=== PATIENT | female | born 1970 | race Caucasian/White ===

== ENCOUNTER 2017-07-03 08:53 | Emergency (ER) | payer MEDICAID ==
[2017-07-03] MEDS: Sodium Chloride 0.9% 10 ML Syringe FLUSH PRN (09:43)
[2017-07-03] MEDS: Sodium Chloride 0.9% 1,000 ML IV ONE (09:43)
[2017-07-03] MEDS: Ondansetron 4 MG/2 ML SDV IV ONE (09:43)
--- NOTE | 2017-07-03 09:45 | EDM.PDOC ---
ED HPI GENERAL MEDICAL PROBLEM - General Chief Complaint: Gastrointestinal Problem Stated Complaint: PASSED OUT [id number] Time Seen by Provider: 07/03/17 09:20 Source of Information: Reports: Patient History Limitations: Reports: No Limitations - History of Present Illness INITIAL COMMENTS - FREE TEXT/NARRATIVE: More is a 46 yo f who presents to the ED today due to a syncopal episode at home. She reports that she was getting ready to leave for a doctors appointment when she passed out for a couple seconds. Episode was witnessed per her mother. Patient relates that she has been having several episodes of diarrhea for the last 3 days. She reports that she has been incontinent of stool twice. Reports that she has had dizziness for the last 2 days and blurred vision. Says that she has been taking in fluids without issues. Decreased appetite. Nausea no emesis. Denies fever. Has been having chills off and on. Reports pain to his left upper abd since onset of diarrhea. Onset Date: 06/30/17 Duration: Day(s): (x 3days ), Constant, Getting Worse Location: Reports: Abdomen (Left upper abd) Quality: Reports: Ache, Throbbing Severity: Moderate Improves with: Reports: None Worsens with: Reports: Eating Associated Symptoms: Reports: Fever/Chills, Loss of Appetite, Nausea/Vomiting, Syncope, Weakness - Related Data Allergies Allergy/AdvReac Type Severity Reaction Status Date / Time nitrofurantoin Allergy Intermediate Hives Verified 07/03/17 09:01 macrocrystalline [From Macrodantin] latex Allergy Blisters Verified 07/03/17 09:01 Home Meds: Home Meds traZODone 50 mg PO BEDTIME 11/12/13 [History] Atenolol [Atenolol] 150 mg PO DAILY 12/17/13 [History] Cholecalciferol (Vitamin D3) [Vitamin D] 1 tab PO DAILY 12/17/13 [History] Cyanocobalamin (Vitamin B-12) [B-12] 1 tab PO DAILY 12/17/13 [History] Lactobacillus Acidophilus [Acidophilus Lactobacillus] 1 tab PO DAILY 12/17/13 [ History] Loratadine [Claritin] 10 mg PO DAILY 12/17/13 [History] Metoclopramide [Reglan] 10 mg PO TID PRN 12/17/13 [History] Omeprazole [Omeprazole] 20 mg PO DAILY 12/17/13 [History] SUMAtriptan Succinate [Imitrex] 100 mg PO BID PRN 12/17/13 [History] Sennosides [Natural Laxative] 1 tab PO DAILY 12/17/13 [History] Triamcinolone Acetonide [Triamcinolone Acetonide 0.1% Crm] 1 dose TOP DAILY [History] Albuterol [Proventil HFA] 2 puff INH Q4H PRN 02/07/15 [History] Escitalopram [Lexapro] 20 mg PO DAILY 02/07/15 [History] Fluticasone/Vilanterol [Breo Ellipta 200-25 Mcg INH] 02/07/15 [History] Lisinopril 2.5 mg PO DAILY 02/07/15 [History] Montelukast [Singulair] 10 mg PO ONETIME 02/07/15 [History] Furosemide [Furosemide] 20 mg PO DAILY 03/23/15 [History] Gabapentin [Gabapentin] 400 mg PO TID 03/23/15 [History] buPROPion HCl [Bupropion Xl] 1 tab PO DAILY 03/23/15 [History] Past Medical History HEENT History: Reports: Impaired Vision Other HEENT History: near sited Other Respiratory History: breast reduction Gastrointestinal History: Reports: None, Other (See Below) (patient reports that she has a hx of gallbladder sludge.) Other OB/BYN History: hystrectomy 2011 3/c- section / Other Musculoskeletal History: raynauds Other Immunologic History: n/a 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) Other Dermatologic History: biopsy waiting on results, to right elbow - Past Surgical History Female Surgical History: Reports: Breast Reduction, Hysterectomy Social & Family History - Family History Family Medical History: Noncontributory - Tobacco Use Smoking Status *Q: Current Every Day Smoker Years of Tobacco use: 30 Packs/Tins Daily: 1 Used Tobacco, but Quit: No Second Hand Smoke Exposure: No - Caffeine Use Caffeine Use: Reports: Coffee - Alcohol Use Days Per Week of Alcohol Use: 0 - Recreational Drug Use Recreational Drug Use: No Drug Use in Last 12 Months: No - Living Situation & Occupation Occupation: Employed ED ROS GENERAL - Review of Systems Review Of Systems: ROS reveals no pertinent complaints other than HPI. ED EXAM, GI/ABD - Physical Exam Exam: See Below Exam Limited By: No Limitations General Appearance: Alert, WD/WN, Mild Distress Eyes: Bilateral: Normal Appearance Ears: Normal External Exam, Normal Canal, Hearing Grossly Normal, Normal TMs Nose: Normal Inspection, Normal Mucosa Throat/Mouth: Normal Inspection, Other (Oral mucosa mildly dry) Head: Atraumatic, Normocephalic Neck: Normal Inspection, Supple, Non-Tender Respiratory/Chest: No Respiratory Distress, Lungs Clear, Normal Breath Sounds, No Accessory Muscle Use Cardiovascular: Normal Peripheral Pulses, Regular Rate, Rhythm, No Edema, No Gallop, No Murmur, No Rub GI/Abdominal Exam: Normal Bowel Sounds, Soft, No Organomegaly, No Distention, Tender (with palpation to left upper abd pain) (Female) Exam: Deferred Rectal (Female) Exam: Deferred Back Exam: Normal Inspection, Full Range of Motion Extremities: Normal Inspection, Normal Range of Motion, Normal Capillary Refill Neurological: Alert, Oriented, CN II-XII Intact Psychiatric: Normal Affect, Normal Mood Skin Exam: Warm, Dry, Intact, Normal Color, No Rash, Other (Cold sore present to upper lip. Blistering present no active drainage noted. ) Lymphatic: No Adenopathy Course - Vital Signs Last Recorded V/S: Last Vital Signs Temp 98 F 07/03/17 09:02 Pulse 80 07/03/17 11:11 Resp 16 07/03/17 11:11 BP 118/83 07/03/17 11:11 Pulse Ox 100 07/03/17 11:11 - Orders/Labs/Meds Orders: Active Orders 24 hr Category Date Time Status EKG Documentation Completion [RC] STAT Care 07/03/17 09:32 Active Peripheral IV Care [RC] . DIRECTED Care 07/03/17 09:34 Active Peripheral IV Insertion Adult [OM.PC] Stat Oth 07/03/17 09:32 Ordered Labs: Laboratory Tests 07/03/17 07/03/17 07/03/17 Range/Units 09:38 09:38 09:47 WBC 11.4 H (5.0-10.0) 10^3/uL RBC 5.32 (4.2-5.4) 10^6/uL Hgb 16.2 H D (12.0-16.0) g/dL Hct 46.5 (37.0-47.0) % MCV 87.4 D (80-100) fL MCH 30.5 (27.0-34.0) pg MCHC 34.8 (33.0-35.0) g/dL Plt Count 260 (150-450) 10^3/uL Neut % (Auto) 77.3 H (42.2-75.2) % Lymph % (Auto) 14.7 L (20.5-50.1) % [place] % (Auto) 6.9 (2-8) % Eos % (Auto) 0.8 L (1.0-3.0) % Baso % (Auto) 0.3 (0.0-1.0) % Sodium 137 (135-145) mmol/L Potassium 3.7 (3.6-5.0) mmol/L Chloride 104 (101-111) mmol/L Carbon Dioxide 25.0 (21.0-31.0) mmol/L Anion Gap 11.7 BUN 21 H (7-18) mg/dL Creatinine 0.9 (0.6-1.3) mg/dL Est Cr Clr Drug Dosing 56.10 mL/min Estimated GFR (MDRD) > 60 BUN/Creatinine Ratio 23.33 Glucose 105 (74-105) mg/dL Calcium 9.6 (8.4-10.2) mg/dl Total Bilirubin 0.6 (0.2-1.0) mg/dL AST 44 H (10-42) IU/L ALT 44 (10-60) IU/L Alkaline Phosphatase 80 (42-121) IU/L Troponin I < 0.02 (0.00-0.02) ng/ml Total Protein 8.4 H (6.7-8.2) g/dl Albumin 4.6 (3.2-5.5) g/dl Globulin 3.8 Albumin/Globulin Ratio 1.21 Amylase 82 (28-100) U/L Lipase 16 L (22-51) U/L Urine Color Yellow (YELLOW) Urine Appearance Clear (CLEAR) Urine pH 5.5 (5.0-9.0) Ur Specific Taylor 1.025 (1.005-1.030) Urine Protein Trace H (NEGATIVE) Urine Glucose (UA) Negative (NEGATIVE) Urine Ketones Negative (NEGATIVE) Urine Occult Blood Trace-lysed H (NEGATIVE) Urine Nitrite Negative (NEGATIVE) Urine Bilirubin Small H (NEGATIVE) Urine Urobilinogen 0.2 (0.2-1.0) mg/dL Ur Leukocyte Esterase Negative (NEGATIVE) Urine RBC 0-5 /HPF Urine WBC 0-5 (0-5/HPF) /HPF Ur Epithelial Cells Many H /HPF Urine Bacteria Moderate H (0-FEW/HPF) /HPF Urine Mucus Many H /LPF Meds: Medications Discontinued Medications Generic Name Dose Route Start Last Admin Trade Name Freq PRN Reason Stop Dose Admin Sodium Chloride 1,000 mls @ 175 mls/hr 07/03/17 09:32 07/03/17 09:43 Normal Saline IV 07/03/17 15:14 175 mls/hr .BOLUS ONE Administration Ondansetron HCl 4 mg 07/03/17 09:32 07/03/17 09:43 Zofran IV 07/03/17 09:33 4 mg ONETIME ONE Administration Sodium Chloride 10 ml 07/03/17 09:32 07/03/17 09:43 Saline Flush FLUSH 10 ml ASDIRECTED PRN Administration Keep Vein Open Departure - Departure Time of Disposition: 11:42 Disposition: Home, Self-Care 01 Condition: Fair Clinical Impression: Gastroenteritis, Diarrhea, Dehydration - Discharge Information Instructions: Viral Gastroenteritis, Adult, [id number], Food Choices to Help Relieve Diarrhea, Adult, Dehydration, Adult, [id number], Abdominal Pain, Adult , [id number], Diarrhea, Adult, [id number] Referrals: Bonnie Davis MD [Primary Care Provider] - Forms: ED Department Discharge Additional Instructions: Use over the counter Imodium or generic Loperamide for diarrhea as directed Drink plenty of water and fluids Follow up with your primary care facility - My Orders Last 24 Hours: My Active Orders 07/03/17 09:32 EKG Documentation Completion [RC] STAT Peripheral IV Insertion Adult [OM.PC] Stat 07/03/17 09:34 Peripheral IV Care [RC] . DIRECTED - Assessment/Plan Last 24 Hours: My Active Orders 07/03/17 09:32 EKG Documentation Completion [RC] STAT Peripheral IV Insertion Adult [OM.PC] Stat 07/03/17 09:34 Peripheral IV Care [RC] . DIRECTED
[2017-07-03 10:07] LABS: CHLORIDE,CL 104 mmol/L (101-111); SODIUM,NA 137 mmol/L (135-145)
[2017-07-03 11:11] VITALS: BP 118/83
--- NOTE | 2017-07-03 16:49 | EKG ---
07/03/2017 - VERITO TUBBS - FINDINGS: The patient's EKG shows a rate of 82 beats per minute. The rhythm is sinus with normal QRS, normal ST segments, and normal T-waves. CONCLUSION: Normal EKG. [facility] /[id number]
== END 2017-07-03 11:48 | disposition home or self-care (01) ==
LOC: DL.ED 08:53
DX: K52.9 Noninfective gastroenteritis and colitis, unspecified (principal); E86.0 Dehydration; F17.210 Nicotine dependence, cigarettes, uncomplicated; Z91.040 Latex allergy status; Z88.1 Allergy status to other antibiotic agents; Z79.899 Other long term (current) drug therapy
CPT/HCPCS: 36415; 80053; 81001; 82150; 83690; 84484; 85025; 87804; 93005; 96361; 96374; 99284; J2405; J7030; J7050

== ENCOUNTER 2018-07-25 20:00 | Emergency (ER) | payer BC, MEDICAID ==
[2018-07-25 21:04] VITALS: BP 143/102
[2018-07-25] MEDS ORDERED: Clindamycin Phosphate 900 MG in Sodium Chloride 0.9% 100 ML IV ONE (22:26)
[2018-07-25] MEDS ORDERED: Sodium Chloride 0.9% 1,000 ML IV ONE (22:26)
--- NOTE | 2018-07-25 22:29 | EDM.PDOC ---
ED HPI GENERAL MEDICAL PROBLEM - General Chief Complaint: Skin Complaint Stated Complaint: CELLULITIS IN HER TOE [id number] Time Seen by Provider: 07/25/18 22:27 Source of Information: Reports: Patient History Limitations: Reports: No Limitations - History of Present Illness INITIAL COMMENTS - FREE TEXT/NARRATIVE: s/p toe surgery May. started swelling few days ago then turn red with drainage today, had h/o cellulitis Treatments AIR TUCKER: Reports: Other (see below) Other Treatments AIR TUCKER: none Left Toe-Hailux Pain Score (Numeric/FACES): 5 - Related Data Allergies Allergy/AdvReac Type Severity Reaction Status Date / Time nitrofurantoin Allergy Intermediate Hives Verified 07/25/18 21:05 macrocrystalline [From Macrodantin] latex Allergy Blisters Verified 07/25/18 21:05 Home Meds: Home Meds traZODone 50 mg PO BEDTIME 11/12/13 [History] Cholecalciferol (Vitamin D3) [Vitamin D] 1 tab PO DAILY 12/17/13 [History] Lactobacillus Acidophilus [Acidophilus Lactobacillus] 1 tab PO DAILY 12/17/13 [ History] Loratadine [Claritin] 10 mg PO DAILY 12/17/13 [History] Metoclopramide [Reglan] 10 mg PO TID PRN 12/17/13 [History] Omeprazole 20 mg PO DAILY 12/17/13 [History] SUMAtriptan Succinate [Imitrex] 100 mg PO BID PRN 12/17/13 [History] Sennosides [Natural Laxative] 1 tab PO DAILY 12/17/13 [History] Triamcinolone Acetonide [Triamcinolone Acetonide 0.1% Crm] 1 dose TOP DAILY [History] Albuterol [Proventil HFA] 2 puff INH Q4H PRN 02/07/15 [History] Montelukast [Singulair] 10 mg PO ONETIME 02/07/15 [History] Gabapentin 400 mg PO TID 03/23/15 [History] Hydrocodone/Acetaminophen [Hydrocodon-Acetaminophn 10-325] 1 each PO Q8H PRN [History] Metoprolol Succinate 50 mg PO DAILY 07/25/18 [History] Rosuvastatin Calcium 10 mg PO DAILY 07/25/18 [History] Topiramate 100 mg PO DAILY 07/25/18 [History] atoMOXetine HCl [Atomoxetine HCl] 40 mg PO DAILY 07/25/18 [History] hydrOXYzine HCl [hydrOXYzine] 25 mg PO DAILY 07/25/18 [History] Past Medical History HEENT History: Reports: Impaired Vision Other HEENT History: near sited Other Respiratory History: breast reduction. 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) Other Dermatologic History: biopsy waiting on results, to right elbow - Past Surgical History Female Surgical History: Reports: Breast Reduction, Hysterectomy Social & Family History - Family History Family Medical History: Noncontributory - Tobacco Use Smoking Status *Q: Current Every Day Smoker Years of Tobacco use: 30 Packs/Tins Daily: 0.3 - Caffeine Use Caffeine Use: Reports: Coffee Other Caffeine Use: states 2 cups per day - Recreational Drug Use Recreational Drug Use: No - Living Situation & Occupation Occupation: Employed ED ROS GENERAL - Review of Systems Review Of Systems: ROS reveals no pertinent complaints other than HPI. ED EXAM, SKIN/RASH Exam: See Below Exam Limited By: No Limitations General Appearance: Alert, WD/WN, Mild Distress, Other ([place]) Ears: Hearing Grossly Normal Throat/Mouth: Normal Voice, No Airway Compromise Head: Atraumatic Neck: Non-Tender, Full Range of Motion Respiratory/Chest: No Respiratory Distress Cardiovascular: Regular Rate, Rhythm GI/Abdominal: Soft, Non-Tender Extremities: Other (left big toe cellulitis without lymphangitis, NV wnl, gait limited to pain) Neurological: Alert, Oriented, Normal Cognition, No Motor/Sensory Deficits Psychiatric: Normal Affect, Normal Mood Skin: Warm, Dry, Normal Color Location, Skin: Lower Extremity, Left Associated features: Warmth, Tenderness, Inflammation, Weeping. No: Lymphangitis, Crusting Lymphatic: No Adenopathy Course - Vital Signs Last Recorded V/S: Last Vital Signs Temp 36.8 C 07/25/18 20:49 Pulse 79 07/25/18 20:49 Resp 16 07/25/18 20:49 BP 143/102 H 07/25/18 20:49 Pulse Ox 100 07/25/18 20:49 - Orders/Labs/Meds Orders: Active Orders 24 hr Category Date Time Status CULTURE BLOOD [BC] Stat Lab 07/25/18 22:37 Received CULTURE WOUND [RM] Stat Lab 07/25/18 20:35 Received Sodium Chloride 0.9% [Normal Saline] 1,000 ml Med 07/25/18 22:26 Active IV .BOLUS Medication Orders Sodium Chloride (Normal Saline) 1,000 mls @ 999 mls/hr IV .BOLUS ONE Stop: 07/25/18 23:26 Last Admin: 07/25/18 22:42 Dose: 999 mls/hr Labs: Laboratory Tests 07/25/18 07/25/18 07/25/18 Range/Units 22:37 22:37 22:37 WBC 9.7 (5.0-10.0) 10^3/uL RBC 4.49 (4.2-5.4) 10^6/uL Hgb 13.8 D (12.0-16.0) g/dL Hct 40.3 (37.0-47.0) % MCV 89.8 (80-100) fL MCH 30.7 (27.0-34.0) pg MCHC 34.2 (33.0-35.0) g/dL Plt Count 236 (150-450) 10^3/uL Neut % (Auto) 52.9 (42.2-75.2) % Lymph % (Auto) 36.4 (20.5-50.1) % [place] % (Auto) 7.8 (2-8) % Eos % (Auto) 2.7 (1.0-3.0) % Baso % (Auto) 0.2 (0.0-1.0) % Sodium 139 (135-145) mmol/L Potassium 3.4 L (3.6-5.0) mmol/L Chloride 104 (101-111) mmol/L Carbon Dioxide 25.0 (21.0-31.0) mmol/L Anion Gap 13.4 BUN 13 (7-18) mg/dL Creatinine 0.8 (0.6-1.3) mg/dL Est Cr Clr Drug Dosing 61.77 mL/min Estimated GFR (MDRD) > 60 BUN/Creatinine Ratio 16.25 Glucose 89 (74-105) mg/dL Lactic Acid 0.7 (0.5-2.2) mmol/L Calcium 9.3 (8.4-10.2) mg/dl Total Bilirubin 0.8 (0.2-1.0) mg/dL AST 31 (10-42) IU/L ALT 27 (10-60) IU/L Alkaline Phosphatase 68 (42-121) IU/L Total Protein 7.4 (6.7-8.2) g/dl Albumin 4.4 (3.2-5.5) g/dl Globulin 3.0 Albumin/Globulin Ratio 1.47 Meds: Medications Generic Name Dose Route Start Last Admin Trade Name Freq PRN Reason Stop Dose Admin Sodium Chloride 1,000 mls @ 999 mls/hr 07/25/18 22:26 07/25/18 22:42 Normal Saline IV 07/25/18 23:26 999 mls/hr .BOLUS ONE Administration Discontinued Medications Generic Name Dose Route Start Last Admin Trade Name Freq PRN Reason Stop Dose Admin Hydrocodone Bitart/Acetaminophen 1 tab 07/25/18 23:17 [place] 325-10 Mg PO 07/25/18 23:18 ONETIME ONE Clindamycin Phosphate 900 mg/ 106 mls @ 200 mls/hr 07/25/18 22:26 07/25/18 22 :42 Sodium Chloride IV 07/25/18 22:57 200 mls/hr ONETIME ONE Administration - Re-Assessments/Exams Free Text/Narrative Re-Assessment/Exam: 07/25/18 23:19 results discussed with pt who is feeling somewhat better presently. Departure - Departure Time of Disposition: 23:20 Disposition: Home, Self-Care 01 Condition: Good Clinical Impression: Cellulitis Qualifiers: Site of cellulitis: extremity Site of cellulitis of extremity: lower extremity Laterality: left Qualified Code(s): L03.116 - Cellulitis of left lower limb - Discharge Information Instructions: Cellulitis, Adult, [id number] Forms: ED Department Discharge Additional Instructions: 1) elevate foot as much as possible next 4 days 2) take tylenol or motrin for fever 3) follow up at clinic rx given; clindamycin 300mg qid x 40 vicodin 5/325mg bid prn x 12 - My Orders Last 24 Hours: My Active Orders 07/25/18 20:35 CULTURE WOUND [RM] Stat 07/25/18 22:26 Sodium Chloride 0.9% [Normal Saline] 1,000 ml IV .BOLUS 07/25/18 22:37 CULTURE BLOOD [BC] Stat - Assessment/Plan Last 24 Hours: My Active Orders 07/25/18 20:35 CULTURE WOUND [RM] Stat 07/25/18 22:26 Sodium Chloride 0.9% [Normal Saline] 1,000 ml IV .BOLUS 07/25/18 22:37 CULTURE BLOOD [BC] Stat
[2018-07-25 23:07] LABS: ANION GAP 13.4; CHLORIDE,CL 104 mmol/L (101-111); SODIUM,NA 139 mmol/L (135-145)
[2018-07-25] MEDS ORDERED: Acetaminophen/HYDROcodone 325-10 MG Tab PO ONE (23:17)
== END 2018-07-25 23:47 | disposition home or self-care (01) ==
LOC: EEVIPCON 20:00 → DL.ED 20:00
DX: L03.116 Cellulitis of left lower limb (principal); F17.210 Nicotine dependence, cigarettes, uncomplicated; Z79.899 Other long term (current) drug therapy; Z88.8 Allergy status to other drugs, medicaments and biological substances; Z91.040 Latex allergy status
CPT/HCPCS: 36415; 80053; 83605; 85025; 87040; 87070; 96365; 99283; A9270; J3490; J7030; J7050; 87077; 87186

== ENCOUNTER 2019-09-05 17:38 | Emergency (ER) | payer MEDICAID, OTHER ==
[2019-09-05] MEDS ORDERED: Lidocaine 5% Oint 35.44 GM Tube TOP ONE (17:39)
[2019-09-05] MEDS ORDERED: predniSONE 20 MG Tab PO ONE (17:39)
[2019-09-05] MEDS ORDERED: Acyclovir 200 MG Cap PO ONE (17:39)
--- NOTE | 2019-09-06 15:06 | EDM.PDOC ---
ED HPI GENERAL MEDICAL PROBLEM - General Chief Complaint: Skin Complaint Stated Complaint: Rash Time Seen by Provider: 09/05/19 17:50 Source of Information: Reports: Patient, RN, RN Notes Reviewed History Limitations: Reports: No Limitations - History of Present Illness INITIAL COMMENTS - FREE TEXT/NARRATIVE: Pt presents to ER with c/o a painful, burning and itching rash to the right side of the back of the neck and upper back. She just noticed the sensation earlier today, and later saw the rash. Onset: Today Duration: Constant, Getting Worse Location: Reports: Neck, Back Quality: Reports: Burning, Sharp Severity: Moderate Improves with: Reports: None Worsens with: Reports: None Associated Symptoms: Reports: No Other Symptoms - Related Data Allergies Allergy/AdvReac Type Severity Reaction Status Date / Time nitrofurantoin Allergy Intermediate Hives Verified 07/25/18 21:05 macrocrystalline [From Macrodantin] amlodipine Allergy Cough Verified 03/04/19 11:35 latex Allergy Blisters Verified 07/25/18 21:05 Home Meds: Home Meds traZODone 50 mg PO BEDTIME 11/12/13 [History] Cholecalciferol (Vitamin D3) [Vitamin D] 1 tab PO DAILY 12/17/13 [History] Lactobacillus Acidophilus [Acidophilus Lactobacillus] 1 tab PO DAILY 12/17/13 [ History] Loratadine [Claritin] 10 mg PO DAILY 12/17/13 [History] Metoclopramide [Reglan] 10 mg PO TID PRN 12/17/13 [History] Omeprazole 20 mg PO DAILY 12/17/13 [History] SUMAtriptan succinate [Imitrex] 100 mg PO BID PRN 12/17/13 [History] Sennosides [Natural Laxative] 1 tab PO DAILY 12/17/13 [History] Triamcinolone Acetonide [Triamcinolone Acetonide 0.1% Crm] 1 dose TOP DAILY [History] Albuterol [Proventil HFA] 2 puff INH Q4H PRN 02/07/15 [History] Montelukast [Singulair] 10 mg PO ONETIME 02/07/15 [History] Gabapentin 400 mg PO TID 03/23/15 [History] Hydrocodone/Acetaminophen [Hydrocodon-Acetaminophn 10-325] 1 each PO Q8H PRN [History] Metoprolol Succinate 50 mg PO DAILY 07/25/18 [History] Rosuvastatin Calcium 10 mg PO DAILY 07/25/18 [History] Topiramate 100 mg PO DAILY 07/25/18 [History] atoMOXetine HCl [Atomoxetine HCl] 40 mg PO DAILY 07/25/18 [History] hydrOXYzine HCL [hydrOXYzine] 25 mg PO DAILY 07/25/18 [History] Past Medical History HEENT History: Reports: Impaired Vision Other HEENT History: near sited Other Respiratory History: breast reduction. 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 ED EXAM, SKIN/RASH Exam: See Below Exam Limited By: No Limitations General Appearance: Alert, WD/WN, No Apparent Distress Eye Exam: Bilateral Eye: Normal Inspection Ears: Normal External Exam Nose: Normal Inspection Throat/Mouth: Normal Inspection Head: Atraumatic, Normocephalic Neck: Full Range of Motion. No: Lymphadenopathy (L), Lymphadenopathy (R) Respiratory/Chest: No Respiratory Distress, Lungs Clear Cardiovascular: Regular Rate, Rhythm Back Exam: Full Range of Motion Extremities: Normal Inspection Neurological: Alert, Oriented, CN II-XII Intact, Normal Cognition, No Motor/ Sensory Deficits Psychiatric: Normal Mood Skin: Warm, Dry, Intact, Zoster-Like Rash (Right of midline at base of neck and upper back with some lesions laterally at the right trapezius.) Departure - Departure Time of Disposition: 15:05 Disposition: Home, Self-Care 01 Condition: Good Clinical Impression: Herpes zoster of neck - Discharge Information *PRESCRIPTION DRUG MONITORING PROGRAM REVIEWED*: Not Applicable *COPY OF PRESCRIPTION DRUG MONITORING REPORT IN PATIENT YORDAN: Not Applicable Instructions: Panda, [id number] Referrals: PCP,None [Primary Care Provider] - Forms: ED Department Discharge Additional Instructions: Rx: Prednisone 20mg Rx: Valtrex 1g Rx: Lidocaine 5% Ointment Follow up in clinic.
== END 2019-09-05 18:08 | disposition home or self-care (01) ==
LOC: DL.ED 17:38
DX: B02.9 Zoster without complications (principal); Z88.8 Allergy status to other drugs, medicaments and biological substances; Z91.040 Latex allergy status; Z79.899 Other long term (current) drug therapy
CPT/HCPCS: 99282; A9270; J7512

== ENCOUNTER 2019-10-27 16:30 | Emergency (ER) | payer MEDICAID ==
[2019-10-27 16:43] VITALS: BP 157/111; PULSE 92
[2019-10-27] MEDS ORDERED: Sodium Chloride 0.9% 10 ML Syringe FLUSH PRN (16:52)
[2019-10-27] MEDS ORDERED: hydrALAZINE 20 MG/ML SDV IVPUSH ONE (16:53)
[2019-10-27] MEDS ORDERED: Metoclopramide 10 MG/2 ML SDV IVPUSH ONE (16:54)
[2019-10-27] MEDS ORDERED: Ketorolac 30 MG/ML SDV IVPUSH ONE (16:54)
[2019-10-27] MEDS ORDERED: Sodium Chloride 0.9% 500 ML IV SCH (17:00)
[2019-10-27 17:34] LABS: ANION GAP 8.1 mEq/L (7-13); CHLORIDE,CL 101 mmol/L (98-107); SODIUM,NA 136 mmol/L (136-145)
--- NOTE | 2019-10-27 17:48 | EDM.PDOC ---
Scribed by Alisia Cruz 10/27/19 [id number] for Collin Tejeda MD ED HPI GENERAL MEDICAL PROBLEM - General Chief Complaint: Cardiovascular Problem Stated Complaint: HIGH BLOOD PRESSURE, DIZZY Time Seen by Provider: 10/27/19 16:37 Source of Information: Reports: Patient, RN, RN Notes Reviewed History Limitations: Reports: No Limitations - History of Present Illness INITIAL COMMENTS - FREE TEXT/NARRATIVE: Patient presents to ER by POV with complaint of elevated blood pressure and headache. She was in shower other day felt very dizzy. Today she felt a little dizzy. Pt states she has been compliant with her 3 BP meds. She is out of her Sumatriptan for migraines and has not been able to get the current headache to go away for 3 days. Onset: Gradual Duration: Constant Severity: Mild Improves with: Reports: None Worsens with: Reports: None Associated Symptoms: Reports: No Other Symptoms Headache Pain Score (Numeric/FACES): 8 - Related Data Allergies Allergy/AdvReac Type Severity Reaction Status Date / Time nitrofurantoin Allergy Intermediate Hives Verified 10/27/19 16:34 macrocrystalline [From Macrodantin] amlodipine Allergy Cough Verified 10/27/19 16:34 latex Allergy Blisters Verified 10/27/19 16:34 Home Meds: Home Meds traZODone 50 mg PO BEDTIME 11/12/13 [History] Cholecalciferol (Vitamin D3) [Vitamin D] 1 tab PO DAILY 12/17/13 [History] Lactobacillus Acidophilus [Acidophilus Lactobacillus] 1 tab PO DAILY 12/17/13 [History] Loratadine [Claritin] 10 mg PO DAILY 12/17/13 [History] Metoclopramide [Reglan] 10 mg PO TID PRN 12/17/13 [History] Omeprazole 20 mg PO DAILY 12/17/13 [History] SUMAtriptan succinate [Imitrex] 100 mg PO BID PRN 12/17/13 [History] Sennosides [Natural Laxative] 1 tab PO DAILY 12/17/13 [History] Triamcinolone Acetonide [Triamcinolone Acetonide 0.1% Crm] 1 dose TOP DAILY 12/17/13 [History] Albuterol [Proventil HFA] 2 puff INH Q4H PRN 02/07/15 [History] Montelukast [Singulair] 10 mg PO ONETIME 02/07/15 [History] Gabapentin 400 mg PO TID 03/23/15 [History] Hydrocodone/Acetaminophen [Hydrocodon-Acetaminophn 10-325] 1 each PO Q8H PRN 07/25/18 [History] Metoprolol Succinate 50 mg PO DAILY 07/25/18 [History] Rosuvastatin Calcium 10 mg PO DAILY 07/25/18 [History] Topiramate 100 mg PO DAILY 07/25/18 [History] atoMOXetine HCl [Atomoxetine HCl] 40 mg PO DAILY 07/25/18 [History] hydrOXYzine HCL [hydrOXYzine] 25 mg PO DAILY 07/25/18 [History] Past Medical History HEENT History: Reports: Impaired Vision Other HEENT History: near sited Other Respiratory History: breast reduction. 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 ED EXAM, GENERAL - Physical Exam Exam: See Below Exam Limited By: No Limitations General Appearance: Anxious Eye Exam: Bilateral Eye: EOMI, Normal Inspection, PERRL Ears: Normal External Exam, Normal Canal, Hearing Grossly Normal, Normal TMs Nose: Normal Inspection, Normal Mucosa, No Blood Throat/Mouth: Normal Inspection, Normal Lips, Normal Teeth, Normal Gums, Normal Oropharynx, Normal Voice, No Airway Compromise Head: Atraumatic, Normocephalic Neck: Normal Inspection, Supple, Non-Tender, Full Range of Motion Respiratory/Chest: No Respiratory Distress, Lungs Clear, Normal Breath Sounds, No Accessory Muscle Use, Chest Non-Tender Cardiovascular: Normal Peripheral Pulses, Regular Rate, Rhythm, No Edema, No Gallop, No JVD, No Murmur, No Rub GI/Abdominal: Normal Bowel Sounds, Soft, Non-Tender, No Organomegaly, No Distention, No Abnormal Bruit, No Mass (Female) Exam: Deferred Rectal (Female) Exam: Deferred Extremities: Normal Inspection, Normal Range of Motion, Non-Tender, Normal Capillary Refill, No Pedal Edema Neurological: Alert, Oriented, CN II-XII Intact, Normal Cognition, Normal Gait, Normal Reflexes, No Motor/Sensory Deficits Psychiatric: Anxious Skin Exam: Warm, Dry, Intact, Normal Color, No Rash EKG INTERPRETATION EKG Date: 10/27/19 Time: 17:04 Rhythm: Other (sinus rhythm,) Rate (Beats/Min): 77 Atco: Normal P-Wave: Present QRS: Normal ST-T: Normal QT: Normal Course - Vital Signs Last Recorded V/S: Last Vital Signs Temp 96.0 F L 10/27/19 16:42 Pulse 92 10/27/19 16:42 Resp 20 10/27/19 16:42 BP 157/111 H 10/27/19 16:42 Pulse Ox 100 10/27/19 16:42 - Orders/Labs/Meds Orders: Active Orders 24 hr Category Date Time Status EKG 12 Lead [EKG Documentation Completion] [RC] STAT Care 10/27/19 16:51 Active Peripheral IV Care [RC] . DIRECTED Care 10/27/19 16:52 Active Sodium Chloride 0.9% [Normal Saline] 500 ml Med 10/27/19 17:00 Active IV .BOLUS Sodium Chloride 0.9% [Saline Flush] Med 10/27/19 16:52 Active 10 ml FLUSH ASDIRECTED PRN Peripheral IV Insertion Adult [OM.PC] Stat Oth 10/27/19 16:52 Ordered Medication Orders Sodium Chloride (Normal Saline) 500 mls @ 999 mls/hr IV .BOLUS ESMER Last Admin: 10/27/19 17:09 Dose: 999 mls/hr Documented by: MEGHA Sodium Chloride (Saline Flush) 10 ml FLUSH ASDIRECTED PRN PRN Reason: Keep Vein Open Last Admin: 10/27/19 17:08 Dose: 10 ml Documented by: MEGHA Labs: Laboratory Tests 10/27/19 10/27/19 Range/Units 16:57 16:57 WBC 9.0 (5.0-10.0) 10^3/uL RBC 4.78 (4.2-5.4) 10^6/uL Hgb 15.2 (12.0-16.0) g/dL Hct 44.2 (37.0-47.0) % MCV 92.5 (80-100) fL MCH 31.8 (27.0-34.0) pg MCHC 34.4 (33.0-35.0) g/dL Plt Count 255 (150-450) 10^3/uL Neut % (Auto) 61.0 (42.2-75.2) % Lymph % (Auto) 27.8 (20.5-50.1) % Wake % (Auto) 8.0 (2-8) % Eos % (Auto) 2.6 (1.0-3.0) % Baso % (Auto) 0.6 (0.0-1.0) % Sodium 136 (136-145) mmol/L Potassium 4.1 (3.5-5.1) mmol/L Chloride 101 (98-107) mmol/L Carbon Dioxide 31 (21-32) mmol/L Anion Gap 8.1 (7-13) mEq/L BUN 18 (7-18) mg/dL Creatinine 0.90 (0.55-1.02) mg/dL Est Cr Clr Drug Dosing 54.31 mL/min Estimated GFR (MDRD) > 60 BUN/Creatinine Ratio 20.0 (No establ ref range) Glucose 82 (74-99) mg/dL Calcium 9.2 (8.5-10.1) mg/dL Magnesium 2.0 (1.8-2.4) mg/dL Total Bilirubin 0.8 (0.2-1.0) mg/dL AST 29 (15-37) U/L ALT 38 (14-59) U/L Alkaline Phosphatase 90 (46-116) U/L Troponin I < 0.017 (0.000-0.056) ng/mL C-Reactive Protein < 0.2 (0.0-0.9) mg/dL Total Protein 7.6 (6.4-8.2) g/dL Albumin 4.0 (3.4-5.0) g/dL Globulin 3.6 Albumin/Globulin Ratio 1.1 Meds: Medications Generic Name Dose Route Start Last Admin Trade Name Soren PRN Reason Stop Dose Admin Sodium Chloride 500 mls @ 999 mls/hr 10/27/19 17:00 10/27/19 17:09 Normal Saline IV 999 mls/hr .BOLUS ESMER Administration Sodium Chloride 10 ml 10/27/19 16:52 10/27/19 17:08 Saline Flush FLUSH 10 ml ASDIRECTED PRN Administration Keep Vein Open Discontinued Medications Generic Name Dose Route Start Last Admin Trade Name Soren PRN Reason Stop Dose Admin Hydralazine HCl 10 mg 10/27/19 16:53 10/27/19 17:08 Apresoline IVPUSH 10/27/19 16:54 10 mg ONETIME ONE Administration Ketorolac Tromethamine 30 mg 10/27/19 16:54 10/27/19 17:07 Toradol IVPUSH 10/27/19 16:55 30 mg ONETIME ONE Administration Metoclopramide HCl 10 mg 10/27/19 16:54 10/27/19 17:09 Reglan IVPUSH 10/27/19 16:55 10 mg ONETIME ONE Administration Departure - Departure Time of Disposition: 17:46 Disposition: Home, Self-Care 01 Condition: Good Clinical Impression: Hypertension, uncontrolled Acute headache Qualifiers: Headache type: unspecified Intractability: intractable Qualified Code(s): R51 - Headache Instructions: Managing Your Hypertension, General Headache Without Cause Forms: ED Department Discharge Additional Instructions: Follow up in clinic this week for hypertension management. Sepsis Event Note (ED) - Focused Exam Vital Signs: Vital Signs Temp Pulse Resp BP Pulse Ox 10/27/19 16:42 96.0 F L 92 20 157/111 H 100 - My Orders Last 24 Hours: My Active Orders 10/27/19 16:51 EKG 12 Lead [EKG Documentation Completion] [RC] STAT 10/27/19 16:52 Peripheral IV Care [RC] . DIRECTED Sodium Chloride 0.9% [Saline Flush] 10 ml FLUSH ASDIRECTED PRN Peripheral IV Insertion Adult [OM.PC] Stat 10/27/19 17:00 Sodium Chloride 0.9% [Normal Saline] 500 ml IV .BOLUS - Assessment/Plan Last 24 Hours: My Active Orders 10/27/19 16:51 EKG 12 Lead [EKG Documentation Completion] [RC] STAT 10/27/19 16:52 Peripheral IV Care [RC] . DIRECTED Sodium Chloride 0.9% [Saline Flush] 10 ml FLUSH ASDIRECTED PRN Peripheral IV Insertion Adult [OM.PC] Stat 10/27/19 17:00 Sodium Chloride 0.9% [Normal Saline] 500 ml IV .BOLUS I have read and agree with the documentation that has been completed regarding this visit. By signing this record, I attest that the documentation was completed in my physical presence and is an accurate record of the encounter.
== END 2019-10-27 17:58 | disposition home or self-care (01) ==
LOC: DL.ED 16:30
DX: I10 Essential (primary) hypertension (principal); R42 Dizziness and giddiness; Z88.8 Allergy status to other drugs, medicaments and biological substances; Z91.040 Latex allergy status; Z79.899 Other long term (current) drug therapy; Z88.1 Allergy status to other antibiotic agents
CPT/HCPCS: 36415; 80053; 83735; 84484; 85025; 86140; 93005; 96361; 96374; 96375; 99284; J0360; J1885; J2765; J7040

== ENCOUNTER 2020-03-11 08:01 | Emergency (ER) | payer MEDICAID ==
[2020-03-11 08:46] VITALS: BP 149/108; PULSE 109
[2020-03-11] MEDS ORDERED: Sodium Chloride 0.9% 1,000 ML IV ONE (08:56)
[2020-03-11] MEDS ORDERED: Dexamethasone 4 MG/ML SDV IV ONE (08:56)
--- NOTE | 2020-03-11 09:05 | EDM.PDOC ---
ED HPI GENERAL MEDICAL PROBLEM - General Chief Complaint: Fever Stated Complaint: COVID SYMPTOMS Time Seen by Provider: 03/11/20 08:40 Source of Information: Reports: Patient, RN, RN Notes Reviewed History Limitations: Reports: No Limitations - History of Present Illness INITIAL COMMENTS - FREE TEXT/NARRATIVE: This 49-year-old female patient presents to ER with complaint of generalized body aches, fever and chills, complaint of chest tenderness/pressure, feelings of shortness of breath from time to time, nausea and vomiting, loss of appetite. Denies any diarrhea. Patient states history of hypertension, taking nifedipine, propranolol, losartan. Patient states she took her propranolol and losartan this morning, nifedipine was last taken last evening. Blood pressures 140s over 100s. Patient states symptoms began Saturday, she was Covid tested on , the sample was sent out and she does not have results. Patient states she has been trying to drink fluids. Onset: Gradual Onset Date: 03/09/20 - Related Data Allergies Allergy/AdvReac Type Severity Reaction Status Date / Time nitrofurantoin Allergy Intermediate Hives Verified 10/27/19 16:34 macrocrystalline [From Macrodantin] amlodipine Allergy Cough Verified 10/27/19 16:34 latex Allergy Blisters Verified 10/27/19 16:34 Home Meds: Home Meds traZODone 50 mg PO BEDTIME 11/12/13 [History] Cholecalciferol (Vitamin D3) [Vitamin D] 1 tab PO DAILY 12/17/13 [History] Lactobacillus Acidophilus [Acidophilus Lactobacillus] 1 tab PO DAILY 12/17/13 [History] Loratadine [Claritin] 10 mg PO DAILY 12/17/13 [History] Metoclopramide [Reglan] 10 mg PO TID PRN 12/17/13 [History] Omeprazole 20 mg PO DAILY 12/17/13 [History] SUMAtriptan succinate [Imitrex] 100 mg PO BID PRN 12/17/13 [History] Sennosides [Natural Laxative] 1 tab PO DAILY 12/17/13 [History] Triamcinolone Acetonide [Triamcinolone Acetonide 0.1% Crm] 1 dose TOP DAILY 12/17/13 [History] Albuterol [Proventil HFA] 2 puff INH Q4H PRN 02/07/15 [History] Montelukast [Singulair] 10 mg PO ONETIME 02/07/15 [History] Gabapentin 400 mg PO TID 03/23/15 [History] Hydrocodone/Acetaminophen [Hydrocodon-Acetaminophn 10-325] 0.5 each PO Q8H PRN 07/25/18 [History] Metoprolol Succinate 50 mg PO DAILY 07/25/18 [History] Rosuvastatin Calcium 10 mg PO DAILY 07/25/18 [History] Topiramate 100 mg PO DAILY 07/25/18 [History] atoMOXetine HCl [Atomoxetine HCl] 40 mg PO DAILY 07/25/18 [History] hydrOXYzine HCL [hydrOXYzine] 25 mg PO DAILY 07/25/18 [History] Past Medical History HEENT History: Reports: Impaired Vision Other HEENT History: near sited Cardiovascular History: Reports: High Cholesterol, Hypertension Respiratory History: Reports: Other (See Below) Other Respiratory History: breast reduction. 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 ED EXAM, GENERAL - Physical Exam Exam: See Below Exam Limited By: No Limitations General Appearance: Alert, WD/WN, Moderate Distress Eye Exam: Bilateral Eye: EOMI, Normal Inspection Ears: Normal External Exam, Hearing Grossly Normal Nose: Normal Inspection Throat/Mouth: Normal Inspection, Normal Voice, No Airway Compromise Head: Atraumatic, Normocephalic Neck: Normal Inspection, Supple, Non-Tender, Full Range of Motion Respiratory/Chest: No Respiratory Distress, Lungs Clear, Normal Breath Sounds, No Accessory Muscle Use, Chest Non-Tender, Decreased Breath Sounds Cardiovascular: Normal Peripheral Pulses, Regular Rate, Rhythm, No Edema, No Gallop, No JVD, No Murmur, No Rub Peripheral Pulses: 2+: Radial (L), Radial (R) GI/Abdominal: Normal Bowel Sounds, Soft, Non-Tender (Female) Exam: Deferred Rectal (Female) Exam: Deferred Back Exam: Normal Inspection, Full Range of Motion, NT Extremities: Normal Inspection, Normal Range of Motion, Non-Tender, Normal Capillary Refill, No Pedal Edema Neurological: Alert, Oriented, CN II-XII Intact, Normal Cognition, Normal Gait, Normal Reflexes, No Motor/Sensory Deficits Psychiatric: Normal Affect, Normal Mood Skin Exam: Warm, Dry, Intact, No Rash, Pallor Lymphatic: No Adenopathy Course - Vital Signs Last Recorded V/S: Last Vital Signs Temp 97.4 F 03/11/20 08:40 Pulse 109 H 03/11/20 08:40 Resp 18 03/11/20 08:40 BP 149/108 H 03/11/20 08:40 Pulse Ox 100 03/11/20 08:40 - Orders/Labs/Meds Orders: Active Orders 24 hr Category Date Time Status Isolation [COMM] Routine Oth 03/11/20 08:53 Active Labs: Laboratory Tests 03/11/20 03/11/20 03/11/20 Range/Units 09:02 10:05 10:05 WBC 5.5 (5.0-10.0) 10^3/uL RBC 5.19 (4.2-5.4) 10^6/uL Hgb 16.7 H D (12.0-16.0) g/dL Hct 47.9 H (37.0-47.0) % MCV 92.3 (80-100) fL MCH 32.2 (27.0-34.0) pg MCHC 34.9 (33.0-35.0) g/dL Plt Count 199 (150-450) 10^3/uL Neut % (Auto) 61.0 (42.2-75.2) % Lymph % (Auto) 22.9 (20.5-50.1) % [place] % (Auto) 15.5 H (2-8) % Eos % (Auto) 0.2 L (1.0-3.0) % Baso % (Auto) 0.4 (0.0-1.0) % PT (9.0-12.0) SEC INR (0.9-1.2) D-Dimer, Quantitative (0-400) ng/mL Sodium 136 (136-145) mmol/L Potassium 3.8 (3.5-5.1) mmol/L Chloride 96 L (98-107) mmol/L Carbon Dioxide 29 (21-32) mmol/L Anion Gap 14.8 H (7-13) mEq/L BUN 16 (7-18) mg/dL Creatinine 0.87 (0.55-1.02) mg/dL Est Cr Clr Drug Dosing 67.55 mL/min Estimated GFR (MDRD) > 60 BUN/Creatinine Ratio 18.4 (No establ ref range) Glucose 83 (74-99) mg/dL Calcium 9.5 (8.5-10.1) mg/dL Magnesium 2.2 (1.8-2.4) mg/dL Ferritin (8-252) mg/mL Total Bilirubin 0.4 (0.2-1.0) mg/dL AST 46 H (15-37) U/L ALT 34 (14-59) U/L Alkaline Phosphatase 105 (46-116) U/L Lactate Dehydrogenase 271 H (81-234) U/L C-Reactive Protein 0.2 (0.0-0.9) mg/dL B-Natriuretic Peptide < 5 (0-100) pg/ml Total Protein 8.7 H (6.4-8.2) g/dL Albumin 4.2 (3.4-5.0) g/dL Globulin 4.5 Albumin/Globulin Ratio 0.9 SARS CoV-2 RNA Rapid JERONIMO Positive H (NEGATIVE) 03/11/20 03/11/20 03/11/20 Range/Units 10:05 10:05 10:05 WBC (5.0-10.0) 10^3/uL RBC (4.2-5.4) 10^6/uL Hgb (12.0-16.0) g/dL Hct (37.0-47.0) % MCV (80-100) fL MCH (27.0-34.0) pg MCHC (33.0-35.0) g/dL Plt Count (150-450) 10^3/uL Neut % (Auto) (42.2-75.2) % Lymph % (Auto) (20.5-50.1) % [place] % (Auto) (2-8) % Eos % (Auto) (1.0-3.0) % Baso % (Auto) (0.0-1.0) % PT 10.6 (9.0-12.0) SEC INR 1.1 (0.9-1.2) D-Dimer, Quantitative 189 (0-400) ng/mL Sodium (136-145) mmol/L Potassium (3.5-5.1) mmol/L Chloride (98-107) mmol/L Carbon Dioxide (21-32) mmol/L Anion Gap (7-13) mEq/L BUN (7-18) mg/dL Creatinine (0.55-1.02) mg/dL Est Cr Clr Drug Dosing mL/min Estimated GFR (MDRD) BUN/Creatinine Ratio (No establ ref range) Glucose (74-99) mg/dL Calcium (8.5-10.1) mg/dL Magnesium (1.8-2.4) mg/dL Ferritin 238 (8-252) mg/mL Total Bilirubin (0.2-1.0) mg/dL AST (15-37) U/L ALT (14-59) U/L Alkaline Phosphatase (46-116) U/L Lactate Dehydrogenase (81-234) U/L C-Reactive Protein (0.0-0.9) mg/dL B-Natriuretic Peptide (0-100) pg/ml Total Protein (6.4-8.2) g/dL Albumin (3.4-5.0) g/dL Globulin Albumin/Globulin Ratio SARS CoV-2 RNA Rapid JERONIMO (NEGATIVE) Meds: Medications Discontinued Medications Generic Name Dose Route Start Last Admin Trade Name Freq PRN Reason Stop Dose Admin Dexamethasone 8 mg 03/11/20 08:56 03/11/20 09:15 Decadron IV 03/11/20 08:57 8 mg ONETIME ONE Administration Sodium Chloride 1,000 mls @ 999 mls/hr 03/11/20 08:56 03/11/20 09:00 Normal Saline IV 03/11/20 09:56 999 mls/hr .BOLUS ONE Administration Azithromycin 500 mg/ Sodium 250 mls @ 250 mls/hr 03/11/20 10:45 03/11/20 11:06 Chloride IV 03/11/20 11:44 250 mls/hr ONETIME ONE Administration Departure - Departure Time of Disposition: 12:30 Disposition: Home, Self-Care 01 Condition: Fair Clinical Impression: COVID-19 - Discharge Information *PRESCRIPTION DRUG MONITORING PROGRAM REVIEWED*: No *COPY OF PRESCRIPTION DRUG MONITORING REPORT IN PATIENT YORDAN: No Instructions: COVID-19 Frequently Asked Questions, COVID-19: How to Protect Yourself and Others - CDC, Fever, Adult, [id number], Prevent the Spread of COVID-19 if You Are Sick - [facility] [place] Forms: ED Department Discharge Additional Instructions: Rx: Azithromycin 250 mg, 1 daily for the next 4 days, begin 03/12/2020 Zofran ODT 4 mg every 6-8 hours as needed for nausea Albuterol inhaler 1 to 2 puffs every 4 hours as needed for cough and shortness of breath Dexamethasone 4 mg, 1 daily x4 days, begin 03/12/2020 Drink plenty of fluids Quarantine until 03/23/2020 Follow-up with your primary care provider after that time if symptoms continue Return to the ER with any worsening of symptoms Sepsis Event Note (ED) - Evaluation Sepsis Screening Result: No Definite Risk - Focused Exam Vital Signs: Vital Signs Temp Pulse Resp BP Pulse Ox 03/11/20 08:40 97.4 F 109 H 18 149/108 H 100 - My Orders Last 24 Hours: My Active Orders 03/11/20 08:53 Isolation [COMM] Routine - Assessment/Plan Last 24 Hours: My Active Orders 03/11/20 08:53 Isolation [COMM] Routine
[2020-03-11 10:35] LABS: ANION GAP 14.8 mEq/L (7-13); CHLORIDE,CL 96 mmol/L (98-107); SODIUM,NA 136 mmol/L (136-145)
[2020-03-11] MEDS ORDERED: Azithromycin 500 MG in Sodium Chloride 0.9% 250 ML IV ONE (10:45)
== END 2020-03-11 12:30 | disposition home or self-care (01) ==
LOC: DL.ED 08:01
DX: U07.1 COVID-19 (principal); E78.00 Pure hypercholesterolemia, unspecified; I10 Essential (primary) hypertension; F41.9 Anxiety disorder, unspecified; F32.9 Major depressive disorder, single episode, unspecified; Z88.1 Allergy status to other antibiotic agents; Z88.8 Allergy status to other drugs, medicaments and biological substances; Z91.040 Latex allergy status; Z79.899 Other long term (current) drug therapy
CPT/HCPCS: 36415; 80053; 82728; 83615; 83735; 83880; 85025; 85379; 85610; 86140; 87635; 87804; 96365; 96366; 96375; 99284; J0456; J1100; J7030; J7050; 99283; U0002

== ENCOUNTER 2020-06-03 17:58 | Emergency (ER) | payer MEDICAID ==
[2020-06-03 18:29] VITALS: BP 137/99; PULSE 97
[2020-06-03] MEDS ORDERED: Acetaminophen/HYDROcodone 325-10 MG Tab PO ONE (18:41)
--- NOTE | 2020-06-03 18:44 | CR ---
PROCEDURE INFORMATION: Exam: XR Right Ankle Exam date and time: 06/03/2020 6:28 PM Age: 49 years old Clinical indication: Other: Fall/pain; Additional info: Fall inverted ankle pain TECHNIQUE: Imaging protocol: XR Right ankle. Views: 3 or more views. COMPARISON: No relevant prior studies available. FINDINGS: Bones/joints: There is a transverse fracture of the base of the right 5th metatarsal with mild distraction of the fracture fragment. There is fusion of the 1st metatarsophalangeal joint. Soft tissues: There is mild soft tissue swelling. IMPRESSION: Rajan fracture of the right 5th metatarsal.
--- NOTE | 2020-06-03 18:59 | EDM.PDOC ---
ED HPI GENERAL MEDICAL PROBLEM - General Chief Complaint: Lower Extremity Injury/Pain Stated Complaint: BROKEN RIGHT ANKLE Time Seen by Provider: 06/03/20 18:30 Source of Information: Reports: Patient, RN, RN Notes Reviewed History Limitations: Reports: No Limitations - History of Present Illness INITIAL COMMENTS - FREE TEXT/NARRATIVE: Pt presents to ER with c/o right foot injury sustained today when she missed a step. Now she cannot bear wt on the right foot. The pain is primarily at the lateral foot. Denies any other injury. Pt rates the pain 8/10. Nothing alleviates the pain. ROM and attempted wt bearing aggravates the pain. No Hx of fractures. Onset: Today, Sudden Duration: Constant Location: Reports: Lower Extremity, Right Quality: Reports: Ache Severity: Severe Improves with: Reports: None Worsens with: Reports: Movement Associated Symptoms: Reports: No Other Symptoms Right Ankle Pain Score (Numeric/FACES): 8 - Related Data Allergies Allergy/AdvReac Type Severity Reaction Status Date / Time nitrofurantoin Allergy Intermediate Hives Verified 06/03/20 18:31 macrocrystalline [From Macrodantin] amlodipine Allergy Cough Verified 06/03/20 18:31 latex Allergy Blisters Verified 06/03/20 18:31 Home Meds: Home Meds traZODone 50 mg PO BEDTIME 11/12/13 [History] Cholecalciferol (Vitamin D3) [Vitamin D] 1 tab PO DAILY 12/17/13 [History] Lactobacillus Acidophilus [Acidophilus Lactobacillus] 1 tab PO DAILY 12/17/13 [History] Loratadine [Claritin] 10 mg PO DAILY 12/17/13 [History] Metoclopramide [Reglan] 10 mg PO TID PRN 12/17/13 [History] Omeprazole 20 mg PO DAILY 12/17/13 [History] SUMAtriptan succinate [Imitrex] 100 mg PO BID PRN 12/17/13 [History] Sennosides [Natural Laxative] 1 tab PO DAILY 12/17/13 [History] Triamcinolone Acetonide [Triamcinolone Acetonide 0.1% Crm] 1 dose TOP DAILY 12/17/13 [History] Albuterol [Proventil HFA] 2 puff INH Q4H PRN 02/07/15 [History] Montelukast [Singulair] 10 mg PO ONETIME 10/12/15 [History] Gabapentin 400 mg PO TID 03/23/15 [History] Hydrocodone/Acetaminophen [Hydrocodon-Acetaminophn 10-325] 0.5 each PO Q8H PRN 07/25/18 [History] Metoprolol Succinate 50 mg PO DAILY 07/25/18 [History] Rosuvastatin Calcium 10 mg PO DAILY 07/25/18 [History] Topiramate 100 mg PO DAILY 07/25/18 [History] atoMOXetine HCl [Atomoxetine HCl] 40 mg PO DAILY 07/25/18 [History] hydrOXYzine HCL [hydrOXYzine] 25 mg PO DAILY 07/25/18 [History] Past Medical History HEENT History: Reports: Impaired Vision Other HEENT History: near sited Cardiovascular History: Reports: High Cholesterol, Hypertension Respiratory History: Reports: Other (See Below) Other Respiratory History: breast reduction. 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) Other Dermatologic History: biopsy waiting on results, to right elbow - Infectious Disease History Infectious Disease History: Reports: Chicken Pox - Past Surgical History Head Surgeries/Procedures: Reports: None Female Surgical History: Reports: Breast Reduction, Hysterectomy Social & Family History - Family History Family Medical History: No Pertinent Family History - Tobacco Use Tobacco Use Status *Q: Current Every Day Tobacco User Years of Tobacco use: 30 Packs/Tins Daily: 0.5 - Caffeine Use Caffeine Use: Reports: Coffee Other Caffeine Use: states 2 cups per day - Recreational Drug Use Recreational Drug Use: No - Living Situation & Occupation Occupation: Employed Review of Systems - Review of Systems Review Of Systems: Comprehensive ROS is negative, except as noted in HPI. ED EXAM, GENERAL - Physical Exam Exam: See Below Exam Limited By: No Limitations General Appearance: Alert, WD/WN, No Apparent Distress Throat/Mouth: Normal Voice Head: Atraumatic, Normocephalic Neck: Normal Inspection Respiratory/Chest: No Respiratory Distress Cardiovascular: Normal Peripheral Pulses Extremities: Normal Capillary Refill, Other (Rt lateral foot with soft tissue swelling and bruising overlying the proximal 5th MT laterally.). No: Joint Swelling, Increased Warmth, Redness Neurological: Alert, Oriented, No Motor/Sensory Deficits Psychiatric: Normal Mood Skin Exam: Warm, Dry, Intact, No Rash ED TRAUMA EXTREMITY PROCEDURES - Splinting Right Lower Extremity Splint Site: Rt foot Pre-Procedure NV Status: Normal Post-Procedure NV Status: Normal Splint Material: Boot Orthotic Applied & Form Fitted By: Nurse Provider Post-Splint Application NV Check: NV Status Normal, Good Position Complications: No Course - Vital Signs Last Recorded V/S: Last Vital Signs Temp 97.1 F 06/03/20 18:27 Pulse 97 06/03/20 18:27 Resp 16 06/03/20 18:27 BP 137/99 H 06/03/20 18:27 Pulse Ox 98 06/03/20 18:27 - Orders/Labs/Meds Orders: Active Orders 24 hr Category Date Time Status DME for Discharge [COMM] Routine Oth 06/03/20 18:41 Ordered DME for Discharge [COMM] Routine Oth 06/03/20 18:41 Ordered Meds: Medications Discontinued Medications Generic Name Dose Route Start Last Admin Trade Name Soren PRN Reason Stop Dose Admin Hydrocodone Bitart/Acetaminophen 1 tab 06/03/20 18:41 06/03/20 18:47 Reydon 325-10 Mg PO 06/03/20 18:42 1 tab ONETIME ONE Administration - Radiology Interpretation Free Text/Narrative:: [facility] Final Radiology Report Call: [phone] assistance Online chat: [email or web address] Name: VERITO TUBBS Age: 49Years F Date: 06/03/2020 SSN: -- : [id number] Study: CR ANKLE MIN 3V RT Requesting Physician: KALEIGH IBARRA Images: 4 Addl Studies: Provided Clinical History: fall inverted ankle pain Contrast: Contrast Medium: Contrast Amount: Contrast Method: CONFIDENTIALITY STATEMENT This report is intended only for use by the referring physician, and only in accordance with law. If you received this in error, call [phone]. Page 1 of 1 PROCEDURE INFORMATION: Exam: XR Right Ankle Exam date and time: 06/03/2020 6:28 PM Age: 49 years old Clinical indication: Other: Fall/pain; Additional info: Fall inverted ankle pain TECHNIQUE: Imaging protocol: XR Right ankle. Views: 3 or more views. COMPARISON: No relevant prior studies available. FINDINGS: Bones/joints: There is a transverse fracture of the base of the right 5th m etatarsal with mild distraction of the fracture fragment. There is fusion of the 1st metatarsophalangeal joint. Soft tissues: There is mild soft tissue swelling. IMPRESSION: Rajan fracture of the right 5th metatarsal. Thank you for allowing us to participate in the care of your patient. Dictated and Authenticated by: Vince Martin MD 06/03/2020 6:43 PM Central Time ([place] & [place]) Departure - Departure Time of Disposition: 18:50 Disposition: Home, Self-Care 01 Condition: Good Clinical Impression: Closed fracture of fifth metatarsal bone of right foot Qualifiers: Encounter type: initial encounter Fracture alignment: displaced Qualified Code(s): S92.351A - Displaced fracture of fifth metatarsal bone, right foot, initial encounter for closed fracture - Discharge Information *PRESCRIPTION DRUG MONITORING PROGRAM REVIEWED*: No *COPY OF PRESCRIPTION DRUG MONITORING REPORT IN PATIENT YORDAN: No Instructions: Metatarsal Fracture Forms: ED Department Discharge Additional Instructions: Rx: Hydrocodone APAP 5mg/325mg *Do not drive or work while under the influence of this medication. Wear the right splint boot. Remove only to sleep and shower. Use crutches, no weight bearing on the right foot. Call Saturday to make an appointment with Dr. Jose Vincent, . Sepsis Event Note (ED) - Evaluation Sepsis Screening Result: No Definite Risk - Focused Exam Vital Signs: Vital Signs Temp Pulse Resp BP Pulse Ox 06/03/20 18:27 97.1 F 97 16 137/99 H 98 - My Orders Last 24 Hours: My Active Orders 06/03/20 18:41 DME for Discharge [COMM] Routine DME for Discharge [COMM] Routine - Assessment/Plan Last 24 Hours: My Active Orders 06/03/20 18:41 DME for Discharge [COMM] Routine DME for Discharge [COMM] Routine
== END 2020-06-03 19:09 | disposition home or self-care (01) ==
LOC: DL.ED 17:58
DX: S92.351A Displaced fracture of fifth metatarsal bone, right foot, initial encounter for closed fracture (principal); Z88.1 Allergy status to other antibiotic agents; E78.00 Pure hypercholesterolemia, unspecified; I10 Essential (primary) hypertension; Z88.8 Allergy status to other drugs, medicaments and biological substances; Z91.040 Latex allergy status; Z79.899 Other long term (current) drug therapy; Z72.0 Tobacco use; W10.9XXA Fall (on) (from) unspecified stairs and steps, initial encounter
CPT/HCPCS: 73610; 99283; A9270; 99284

== ENCOUNTER 2021-04-13 18:07 | Emergency (ER) | payer MEDICAID ==
[2021-04-13] MEDS ORDERED: Codeine/guaiFENesin 10-100 MG/5 ML Syrup 5 ML Cup PO ONE (18:08)
[2021-04-13 19:11] LABS: CORONAVIRUS COVID-19 NAA NEGATIVE (NEGATIVE)
[2021-04-13 19:24] VITALS: BP 170/119; PULSE 81
[2021-04-13] MEDS: Sodium Chloride 0.9% 1,000 ML IV ONE (19:43)
[2021-04-13] MEDS: Oseltamivir 75 MG Cap PO ONE (19:44)
[2021-04-13] MEDS: Codeine/guaiFENesin 10-100 MG/5 ML Syrup 5 ML Cup PO ONE (19:44)
[2021-04-13] MEDS: Ondansetron 4 MG/2 ML SDV IVPUSH ONE (19:44)
--- NOTE | 2021-04-13 19:51 | EDM.PDOC ---
ED HPI GENERAL MEDICAL PROBLEM - General Chief Complaint: Gastrointestinal Problem Stated Complaint: 97.7*, COUGHING, VOMITING, DHIREA, BREATHING Time Seen by Provider: 04/13/21 19:30 Source of Information: Reports: Patient History Limitations: Reports: No Limitations - History of Present Illness INITIAL COMMENTS - FREE TEXT/NARRATIVE: This 50 yo female patient reports to the ED with a 3 day history of increasing cough. The patient reports she has not been able to eat since Saturday, but has attempted to drink fluids. 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 Generalized Pain Score (Numeric/FACES): 4 - Related Data Allergies Allergy/AdvReac Type Severity Reaction Status Date / Time nitrofurantoin Allergy Intermediate Hives Verified 04/13/21 18:46 macrocrystalline [From Macrodantin] amlodipine Allergy Cough Verified 04/13/21 18:46 latex Allergy Blisters Verified 04/13/21 18:46 Home Meds: Home Meds Lactobacillus Acidophilus [Acidophilus Lactobacillus] 1 tab PO DAILY 12/17/13 [History] Loratadine [Claritin] 10 mg PO DAILY 12/17/13 [History] Metoclopramide [Reglan] 10 mg PO TID PRN 12/17/13 [History] Omeprazole 20 mg PO DAILY 12/17/13 [History] SUMAtriptan succinate [Imitrex] 100 mg PO BID PRN 12/17/13 [History] Sennosides [Natural Laxative] 1 tab PO DAILY 12/17/13 [History] Triamcinolone Acetonide [Triamcinolone Acetonide 0.1% Crm] 1 dose TOP DAILY 12/17/13 [History] Albuterol [Proventil HFA] 2 puff INH Q4H PRN 02/07/15 [History] Montelukast [Singulair] 10 mg PO ONETIME 02/07/15 [History] Hydrocodone/Acetaminophen [Hydrocodon-Acetaminophn 10-325] 0.5 each PO Q8H PRN 07/25/18 [History] Metoprolol Succinate 50 mg PO DAILY 07/25/18 [History] hydrOXYzine HCL [hydrOXYzine] 25 mg PO DAILY 07/25/18 [History] Past Medical History HEENT History: Reports: Impaired Vision Other HEENT History: near sited Cardiovascular History: Reports: High Cholesterol, Hypertension Respiratory History: Reports: Other (See Below) Other Respiratory History: breast reduction. 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) Other Dermatologic History: biopsy waiting on results, to right elbow - Infectious Disease History Infectious Disease History: Reports: C-Difficile, Chicken Pox - Past Surgical History Head Surgeries/Procedures: Reports: None Female Surgical History: Reports: Breast Reduction, Hysterectomy Social & Family History - Family History Family Medical History: No Pertinent Family History - Tobacco Use Tobacco Use Status *Q: Current Every Day Tobacco User Years of Tobacco use: 30 Packs/Tins Daily: 0.5 - Caffeine Use Caffeine Use: Reports: None Other Caffeine Use: states 2 cups per day - Recreational Drug Use Recreational Drug Use: Yes Recreational Drug Type: Reports: Marijuana/Hashish Other Recreational Drug Type: Medical Thc. Recreational Drug Use Frequency: Weekly - Living Situation & Occupation Occupation: Employed ED ROS GENERAL - Review of Systems Review Of Systems: Comprehensive ROS is negative, except as noted in HPI. ED EXAM, GI/ABD - Physical Exam Exam: See Below Exam Limited By: No Limitations General Appearance: Alert, WD/WN, Moderate Distress Eyes: Bilateral: Normal Appearance, EOMI Ears: Normal External Exam, Normal Canal, Hearing Grossly Normal, Normal TMs Nose: Normal Inspection, Normal Mucosa, No Blood Throat/Mouth: Normal Inspection, Normal Lips, Normal Teeth, Normal Gums, Normal Oropharynx, Normal Voice, No Airway Compromise Head: Atraumatic, Normocephalic Neck: Normal Inspection, Supple, Non-Tender, Full Range of Motion Respiratory/Chest: No Respiratory Distress, Lungs Clear, Normal Breath Sounds, No Accessory Muscle Use, Chest Non-Tender Cardiovascular: Normal Peripheral Pulses, Regular Rate, Rhythm, No Edema, No Gallop, No JVD, No Murmur, No Rub GI/Abdominal Exam: Normal Bowel Sounds, Soft, No Organomegaly, No Distention, No Abnormal Bruit, No Mass, Pelvis Stable, Tender (diffuse) (Female) Exam: Deferred Rectal (Female) Exam: Deferred Back Exam: Normal Inspection, Full Range of Motion, NT Extremities: Normal Inspection, Normal Range of Motion, Non-Tender, Normal Capillary Refill, No Pedal Edema Neurological: Alert, Oriented, CN II-XII Intact, Normal Cognition, Normal Gait, Normal Reflexes, No Motor/Sensory Deficits Psychiatric: Normal Affect, Normal Mood Skin Exam: Warm, Dry, Intact, Normal Color, No Rash Lymphatic: No Adenopathy Course - Vital Signs Last Recorded V/S: Last Vital Signs Temp 97.9 F 04/13/21 19:23 Pulse 81 04/13/21 19:23 Resp 18 04/13/21 19:23 BP 170/119 H 04/13/21 19:23 Pulse Ox 94 L 04/13/21 19:23 - Orders/Labs/Meds Labs: Laboratory Tests 04/13/21 Range/Units 18:25 Influenza Type A RNA Positive H (NEGATIVE) Influenza Type B RNA Negative (NEGATIVE) SARS-CoV-2 RNA (JERONIMO) Negative (NEGATIVE) Meds: Medications Discontinued Medications Generic Name Dose Route Start Last Admin Trade Name Freq PRN Reason Stop Dose Admin Guaifenesin/Codeine Phosphate 5 ml 04/13/21 19:36 04/13/21 19:44 Codeine/Guaifenesin 10-100 Mg/5 Ml Syrup 5 Ml Cup PO 04/13/21 19:37 5 ml ONETIME ONE Administration Sodium Chloride 1,000 mls @ 999 mls/hr 04/13/21 19:36 04/13/21 19:43 Normal Saline IV 04/13/21 20:36 999 mls/hr .BOLUS ONE Administration Ondansetron HCl 4 mg 04/13/21 19:36 04/13/21 19:44 Ondansetron 4 Mg/2 Ml Sdv IVPUSH 04/13/21 19:37 4 mg ONETIME ONE Administration Oseltamivir Phosphate 75 mg 04/13/21 19:36 04/13/21 19:44 Oseltamivir 75 Mg Cap PO 04/13/21 19:37 75 mg ONETIME ONE Administration Departure - Departure Time of Disposition: 20:38 Disposition: Home, Self-Care 01 Condition: Fair Clinical Impression: Influenza A - Discharge Information *PRESCRIPTION DRUG MONITORING PROGRAM REVIEWED*: Not Applicable *COPY OF PRESCRIPTION DRUG MONITORING REPORT IN PATIENT YORDAN: Not Applicable Instructions: Influenza, Adult, [id number] Forms: ED Department Discharge Care Plan Goals: The patient was advised of the examination and lab results during the visit. The patient was given IV fluids, IV Zofran, an oral dose of Tamiflu and an oral dose of Robitussin AC while in the ED. The patient was discharged with a dose of Robitussin AC to take in 6 hours if needed for cough. The patient was discharged with scripts for 1) Tamiflu (75 mg) #9 to take 1 by mouth 2 times per day, 2) Zofran (4 mg) #20 to take 1 by mouth every 6 hours as needed for nausea and 3) Robitussin AC #100 mL to take 10 mL by mouth every 6 hours as needed for cough. The patient was encouraged to stick to a BRAT diet (bananas, rice, applesauce and toast) with small frequent sips of fluid over the next 48 hours. If the patient has any additional symptoms or concerns, the patient should eithe return to the emergency department or visit her primary care facility. Sepsis Event Note (ED) - Evaluation Sepsis Screening Result: No Definite Risk - Focused Exam Vital Signs: Vital Signs Temp Pulse Resp BP BP Pulse Ox 04/13/21 19:23 97.9 F 81 18 170/119 H 94 L 04/13/21 18:25 96.7 F L 88 18 141/112 H 143/103 H 97
[2021-04-13] MEDS ORDERED: Codeine/guaiFENesin 10-100 MG/5 ML Syrup 5 ML Cup ONE (20:42)
== END 2021-04-13 20:52 | disposition home or self-care (01) ==
LOC: DL.ED 18:07
DX: J10.1 Influenza due to other identified influenza virus with other respiratory manifestations (principal); E78.00 Pure hypercholesterolemia, unspecified; I10 Essential (primary) hypertension; Z91.040 Latex allergy status; Z88.1 Allergy status to other antibiotic agents; Z88.8 Allergy status to other drugs, medicaments and biological substances; Z79.899 Other long term (current) drug therapy; Z72.0 Tobacco use; Z20.822 Contact with and (suspected) exposure to COVID-19
CPT/HCPCS: 0240U; 96374; 99283-25; A9270-GY; J2405; J7030